=== PATIENT | male | born 1955 | race Caucasian/White ===

== ENCOUNTER 2023-10-05 08:19 | Inpatient (IN) | payer OTHER ==
[2023-10-05] MEDS ORDERED: Acetaminophen 325 MG TAB PO PRN (10:28)
[2023-10-05] MEDS ORDERED: niCARdipine 25 MG in Sodium Chloride 0.9% 250 ML 250 ML IVPB PRN (10:28)
[2023-10-05] MEDS ORDERED: Labetalol HCl 100 MG/20 ML VIAL SLOW IVP PRN (10:28)
[2023-10-05] MEDS ORDERED: hydrALAZINE 20 MG/ML VIAL SLOW IVP PRN (10:28)
[2023-10-05 12:03] VITALS: BMI 26.8
[2023-10-05] MEDS: Atorvastatin Calcium 40 MG TAB PO SCH (19:59)
[2023-10-06] MEDS: Methocarbamol 500 MG TAB PO SCH (00:25)
[2023-10-06 10:32] LABS: #Basophils 0.1 thou/uL (0.0-0.2); #Eosinphils 0.2 thou/uL (0.0-0.7); #Monocytes 0.7 thou/uL (0.11-0.59); #Neutrophils 3.7 thou/uL (1.40-6.50); %Basophils 0.8 % (0.0-1.0); %Lymphocytes 35.8 % (21.0-51.0); %Monocytes 9.5 % (0.0-10.0); %Neutrophils 50.8 % (42.0-75.0); Hematocrit 43.6 % (42.0-52.0); Mean Corpuscular HGB CONC 32.1 g/dL (32.0-36.0); Mean Corpuscular Hemoglobin 28.9 pg (27.0-31.0); Mean Corpuscular Volume 90.1 fl (78.0-98.0); Mean Platelet Volume 11.2 fL (7.4-10.4); Platelet Count 179 10x3/uL (130-400); RBC Distribution Width 14.4 % (11.5-14.5); Red Blood Cell (RBC) Count 4.84 mill/uL (4.70-6.10)
[2023-10-06] MEDS: Aspirin 81 mg Enteric Coated Tablet PO SCH (10:49)
[2023-10-06 11:02] LABS: Anion Gap 13 mmol/L (10-20); BUN (Urea Nitrogen) 17 mg/dL (8.4-25.7); Calc. Creatinine Clearance 105 mL/min (70-130); Calcium 9.2 mg/dL (7.8-10.44); Carbon Dioxide 22 mmol/L (23-31); Cardiac Risk 4.6 (Less than 4.5); Chloride 108 mmol/L (98-107); Cholesterol 153 mg/dl (< 200 Desired); Estimated GFR 97; Glucose 107 mg/dL (80-115); HDL Cholesterol 33 mg/dL (>60 Neg Risk); LDL Cholesterol, Calculated 89 mg/dL; Potassium 4.4 mmol/L (3.5-5.1); Sodium 139 mmol/L (136-145); Triglycerides 153 mg/dL (Less than 150)
[2023-10-06 23:33] VITALS: TEMP 97.9
[2023-10-07] MEDS: Aspirin 81 mg Enteric Coated Tablet PO SCH (08:15)
[2023-10-07 11:09] VITALS: BP 128/75
== END 2023-10-07 12:16 | DRG 69 ==
LOC: EEVIPCON 08:19 → ERS 08:19 → ERHOLD 09:43 → CCU 11:23 → 2SE 10-06 16:21
PROVIDERS: ADMIT Family Medicine; ATTEND Internal Medicine
PROC: 4A00X4Z Measurement of Central Nervous Electrical Activity, External Approach (ICD-10-PCS; principal; 2023-10-06)
DX: G45.9 Transient cerebral ischemic attack, unspecified (principal); G81.91 Hemiplegia, unspecified affecting right dominant side; R55 Syncope and collapse; I10 Essential (primary) hypertension; I25.10 Atherosclerotic heart disease of native coronary artery without angina pectoris; E78.5 Hyperlipidemia, unspecified; K21.9 Gastro-esophageal reflux disease without esophagitis; I65.23 Occlusion and stenosis of bilateral carotid arteries; I44.0 Atrioventricular block, first degree; S09.90XA Unspecified injury of head, initial encounter; W18.30XA Fall on same level, unspecified, initial encounter; E03.9 Hypothyroidism, unspecified; R29.90 Unspecified symptoms and signs involving the nervous system; M25.531 Pain in right wrist; M79.631 Pain in right forearm; G47.33 Obstructive sleep apnea (adult) (pediatric); Z88.5 Allergy status to narcotic agent; Z91.010 Allergy to peanuts; Z90.49 Acquired absence of other specified parts of digestive tract; Z95.1 Presence of aortocoronary bypass graft; Z92.82 Status post administration of tPA (rtPA) in a different facility within the last 24 hours prior to admission to current facility
CPT/HCPCS: 36415; 70450; 70551; 80048; 80061; 83036; 84443; 85025; 93306; 95711; 95819; 99285